=== PATIENT | female | born 1995 | race Caucasian/White ===

== ENCOUNTER 2017-08-21 17:35 | Emergency (ER) | payer SELFPAY ==
[~2017-08-21] VITALS: Ht 167.6 cm; Wt 57.2 kg
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
[2017-08-21 17:45] VITALS: BP 119/75
[2017-08-21 18:30] VITALS: BP 119/75
== END 2017-08-21 18:58 | disposition home or self-care (01) ==
LOC: EDBD 17:35 → EMR 18:47
DX: T50.901A Poisoning by unspecified drugs, medicaments and biological substances, accidental (unintentional), initial encounter (principal); R41.82 Altered mental status, unspecified
CPT/HCPCS: 99283